=== PATIENT | female | born 1970 | race African-American/Black ===

== ENCOUNTER → 2018-10-10 12:58 | Outpatient (CLI) | payer OTHER, MEDICAID, SELFPAY ==
--- NOTE | 2018-10-16 08:10 | PM.PFT.1 ---
Pulmonary Function Test Referral & Results Date Patient Seen: 10/10/18 Requesting provider: May Garcia Indication: Pulmonary sarcoidosis Results: The spirometry demonstrates an FVC of 2.34 L which is 79% of predicted. The FEV1 was measured at 1.99 L which is 84% of predicted. The FEV1/FVC ratio was 85 which is 103% of predicted. Following the administration of bronchodilator there was no appreciable change. Lung volumes show an SVC of 2.36 L which is 71% of predicted. The diffusing capacity was measured at 16.66 which is 68% of predicted. No hemoglobin value was provided, so no correction for potential anemia could be made, if appropriate. Interpretation: This study demonstrates perhaps mild obstructive lung disease based on minimal reduction in FEV1 without evidence of benefit following bronchodilator There is a more significant reduction in lung volumes suggesting more significant restrictive lung disease There is also an element of disease at the capillary alveolar level based on reduction in diffusing capacity, unless patient is anemic
== END ==
PROVIDERS: Visit Provider Internal Medicine Critical Care Medicine
DX: D86.0 Sarcoidosis of lung (principal)
CPT/HCPCS: 94060; 94726; 94729

== ENCOUNTER → 2025-01-18 10:30 | Outpatient (CLI) | payer OTHER, SELFPAY | LOC: RESP 10:31 | PROVIDERS: PCP Nurse Practitioner Family; Referring Provider Internal Medicine Critical Care Medicine; Visit Provider Internal Medicine Critical Care Medicine | DX: R06.09 Other forms of dyspnea (principal); D86.9 Sarcoidosis, unspecified; R94.2 Abnormal results of pulmonary function studies | CPT/HCPCS: 94060; 94726; 94729 ==

== ENCOUNTER → 2025-07-12 14:57 | Outpatient (CLI) | payer OTHER, SELFPAY ==
--- NOTE | 2025-07-12 14:58 | DI.CT.S_ITS ---
PROCEDURE: CT CHEST WO CON INDICATIONS: Dyspnea, h/o fibrotic lung dz , Sarcoid, eval for change TECHNIQUE: Noncontrast 5 mm thick sections acquired from the pulmonary apices to the posterior costophrenic angles. 1 mm lung window, 5 mm thick coronal and sagittal and 7 mm axial MIP reformats were then acquired. For radiation dose reduction, the following was used: automated exposure control, adjustment of mA and/or kV according to patient size. COMPARISON: CT high-resolution chest 12/24/2019, CT chest without contrast 07/31/2019. FINDINGS: Image quality: Diagnostic. Lower Neck: No enlarged lymph nodes. Thyroid: No thyroid nodules which require sonographic follow up, per consensus guidelines. Axillae: No enlarged lymph nodes. Chest Wall: Unremarkable. Bones: Unremarkable. Lungs and Pleura: No pneumothorax or pleural effusions. There is redemonstration of bilateral upper lobe bronchiectasis with associated ground-glass opacities. Significantly changed compared to prior. Heart: Heart size is normal. No pericardial effusion. Thoracic Vessels: The aorta and pulmonary arteries demonstrate normal size. Mediastinum and Madelyn: Stable mediastinal adenopathy. Esophagus: No wall thickening. No hiatal hernia. Upper Abdomen: Visualized upper abdomen solid organs and bowel loops appear normal. IMPRESSION: Compared to prior exams in 2019, there is similar extent of bilateral upper lobe bronchiectasis and fibrosis. No findings to suggest progression of disease. Approved by: Merry Black M.D.,Ph.D. on 07/14/2025 at 0:33
== END ==
LOC: CT 14:58
PROVIDERS: PCP Nurse Practitioner Family; Referring Provider Nurse Practitioner Family; Visit Provider Internal Medicine Critical Care Medicine
DX: J47.9 Bronchiectasis, uncomplicated (principal); D86.9 Sarcoidosis, unspecified; R06.09 Other forms of dyspnea
CPT/HCPCS: 71250